=== PATIENT | male | born 1975 | race Caucasian/White ===

== ENCOUNTER 2023-08-20 11:17 | Outpatient (REF) | payer MEDICAID, SELFPAY ==
--- NOTE | ~2023-08-20 | XR_ITS ---
EXAMINATION: XR ANKLE, LEFT CLINICAL INFORMATION: Asymmetric left lateral ankle pain, patient states no trauma, pain and tenderness for ankle for about a week. COMPARISON: June 26, 2016. TECHNIQUE: AP, lateral, and mortise views of the left ankle. FINDINGS: Degenerative changes with hypertrophic spurring along the dorsal aspect of the talonavicular joint and imaged portion of midfoot as well as anterior distal tibia. Moderate dorsal calcaneal and small plantar calcaneal spurs. Diffuse soft tissue swelling and joint effusion. Ankle mortise is preserved. XR/XR ankle LT min 3V IMPRESSION: 1. Degenerative changes with hypertrophic spurring along the dorsal aspect of the talonavicular joint and imaged portion of midfoot as well as anterior distal tibia. 2. Moderate dorsal calcaneal and small plantar calcaneal spurs. 3. Diffuse soft tissue swelling and joint effusion.
[2023-08-20 12:32] LABS: Uric Acid 6.8 mg/dL (3.4-7.0)
[2023-08-21 08:58] LABS: Lyme Abs Screen <0.90 index
== END 2023-08-20 11:18 | disposition home or self-care (01) ==
LOC: HO.LAB 11:17
PROVIDERS: Visit Provider Emergency Medicine
DX: M25.572 Pain in left ankle and joints of left foot (principal)
CPT/HCPCS: 36415; 73610; 84550; 86617; 86618

== ENCOUNTER 2023-09-13 11:17 | Outpatient (AMB) | payer MEDICAID, SELFPAY ==
--- NOTE | 2023-09-13 11:35 | MHC.OFFVIS ---
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 Patient reports his pain has been on going for the past two months. He states is has been getting worse and only finds temporary relief when he is resting. He expresses the pain gets so severe he sometimes is unable to walk and will need to hold on to object to be able to get around with a limp When he is resting for too long and beings ambulating again his foot feels as if it fractured . He expresses sensitivity with palpitation and swelling. Tried and failed Motrin and Tylenol and ibuprofen for pain relief. 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 He currently states he has pain in his left ankle that gets so severe sometimes that he is unable to ambulate and he needs to hold on to object to be able to get around with a limp. His pain is also aggravated after resting for too long and ambulating again and feels his foot is ?fractured.? He experiences sensitivity with palpation and swelling. He has tried and failed with Motrin, Tylenol and ibuprofen. [facility] Social History (Updated 09/13/23 @ 12:01 by MACIEL Rocha) Alcohol intake: never Patient Tobacco Use Status: Current everyday Tobacco user Tobacco use type: Cigarette Current occupational status: employed Review of Systems Const All systems reviewed & are unremarkable except as noted in HPI and below Physical Exam Vital Signs: BMI result Body Mass Index 38.4 Const General: cooperative, healthy appearing, comfortable, no acute distress, well developed and alert Orientation/consciousness: patient oriented x3 HEENT Head: Yes normal to inspection, Yes normocephalic and Yes atraumatic Eyes General: appearance normal, both eyes and all related structures Resp Effort & Inspection: normal respiratory effort and able to speak in complete sentences Cardio Rate: regular rate Peripheral pulses: Peripheral pulses 2+ throughout GI Palpation (GI): Soft to palpation Skin Lesions: no lesions Rashes: no rashes Neuro General: patient oriented x3 Extrem Other: Left ankle: Normal to inspection with mild swelling over the medial and lateral malleolus with tenderness along the soft tissues.No discomfort along the posterior aspect of the ankle, no deformity along the Achilles tendon, negative [place]?s. No pain along the syndesmosis or anterior tibia. No laxity, NVI. Results Reviewed Results Reviewed: XR ankle LT min 3V IMPRESSION: 1. Degenerative changes with hypertrophic spurring along the dorsal aspect of the talonavicular joint and imaged portion of midfoot as well as anterior distal tibia. 2. Moderate dorsal calcaneal and small plantar calcaneal spurs. 3. Diffuse soft tissue swelling and joint effusion. Assessment & Plan Assessment & Plan (1) Left ankle sprain: Code(s): S93.402A - Sprain of unspecified ligament of left ankle, initial encounter Category: Medical Plan We discussed options which include PT, NSAIDs and injections. The patient will defer on the injection today and proceed with PT and NSAIDs. If symptoms persist, she will contact me for an injection, otherwise, PRN. Medications: New celecoxib (Celebrex) 200 mg PO BID 30 days 60 caps 3RF Discontinued albuterol sulfate 90 mcg/actuation Discontinued Reason: Patient no longer taking 2 puffs PO Q4-6H PRN 8.5 grams 0RF bronchospasm gabapentin Discontinued Reason: Patient no longer taking 600 mg PO TID 90 days 270 tabs 2RF Patient Instructions: Scribed for Huang Brunson PA-C, by Tomasz Mcgrath lpn or medical assistant, on 09/13/2023 at 11:15 AM EST.? I, Huang Brunson PA-C, have personally reviewed and agree with the information entered by the scribe. Coding Level of Care Code Est Pt Level 3 (86706) Diagnoses Left ankle sprain S93.402A
[2023-09-13 11:53] VITALS: BMI 38.4
== END 2023-09-13 12:36 | disposition home or self-care (01) ==
PROVIDERS: PCP Internal Medicine; Visit Provider Physician Assistant
DX: S93.402A Sprain of unspecified ligament of left ankle, initial encounter (principal)
CPT/HCPCS: 99213

== ENCOUNTER → 2023-09-13 11:17 | Outpatient (BNVA) | payer MEDICAID, SELFPAY | PROVIDERS: PCP Internal Medicine; Visit Provider Physician Assistant | DX: S93.402A Sprain of unspecified ligament of left ankle, initial encounter (principal) | CPT/HCPCS: 99212 ==

== ENCOUNTER 2023-10-29 11:19 | Outpatient (REF) | payer MEDICAID, SELFPAY ==
[2023-10-29 13:50] LABS: MANUAL DIFF FLAG NO
[2023-10-29 14:06] LABS: Basophils Absolute Auto 0.1 X10*3/uL (0.0-0.2); Basophils Percent Auto 1.3 % (0-2); Eosinophils Absolute Auto 0.2 X10*3/uL (0.0-0.4); Eosinophils Percent Auto 3.5 % (0-4); Hematocrit 44.9 % (42.0-52.0); Hemoglobin 15.2 g/dl (14.0-18.0); Imm Gran Abs Auto 0.02 X10*3/uL (0.00-0.03); Imm Gran Pct Auto 0.3 % (0.0-0.4); Lymphocytes Absolute Auto 1.3 X10*3/uL (1.2-4.9); Lymphocytes Percent Auto 21.1 % (20-40); Mean Corpuscular HGB Conc 33.9 g/dl (31.0-36.0); Mean Corpuscular Hemoglobin 30.8 pg (27.0-33.0); Mean Corpuscular Volume 91.1 fL (80.0-98.0); Mean Platelet Volume 10.7 fL (9.4-12.4); Monocytes Absolute Auto 0.4 X10*3/uL (0.1-1.2); Monocytes Percent Auto 6.4 % (2-11); Neutrophils Absolute Auto 4.2 x10*3/uL (2.0-8.3); Neutrophils Percent Auto 67.4 % (45-73); Platelet Count 210 X10*3/uL (160-400); Red Blood Count 4.93 X10*6/uL (4.60-5.80); Red Cell Distribution Width 12.8 % (11.0-16.0); White Blood Count 6.3 X10*3/uL (4.8-10.8)
[2023-10-29 14:20] LABS: Estimated Average Glucose 105 mg/dL; Hemoglobin A1c % 5.3 % (<6.0)
[2023-10-29 14:37] LABS: Alanine Aminotransferase 23 U/L (0-40); Albumin Level 4.3 g/dL (3.5-5.0); Alkaline Phosphatase 89 U/L (39-117); Anion Gap 12 (12-20); Aspartate Amino Transferase 21 U/L (5-37); Bilirubin Total 0.4 mg/dL (0.0-1.0); Blood Urea Nitrogen 14 mg/dL (9-16); Calcium 9.7 mg/dL (8.4-10.2); Carbon Dioxide 27 mmol/L (22-29); Chloride 104 mmol/L (96-108); Cholesterol 142 mg/dL (<200); Estimated Glomerular Filt Rate > 60; Glucose Random 92 mg/dL (60-115); HDL Cholesterol 30 mg/dL (>40); LDL Cholesterol Calculated 96 mg/dL (<100); Potassium 4.2 mmol/L (3.3-5.1); Sodium 139 mmol/L (135-145); Total Protein 7.6 g/dL (6.5-8.0); Triglycerides 81 mg/dL (<150)
[2023-10-29 14:40] LABS: TSH reflex Free T4 0.68 uIU/mL (0.32-4.0); Vitamin D 25-OH Total 32.6 ng/mL (>30)
[2023-10-29 15:01] LABS: Reflex LDLD? No
== END 2023-10-29 11:20 | disposition home or self-care (01) ==
LOC: HO.HHCL 11:19
PROVIDERS: Visit Provider Internal Medicine
DX: Z00.00 Encounter for general adult medical examination without abnormal findings (principal); I10 Essential (primary) hypertension; Z79.899 Other long term (current) drug therapy; R00.2 Palpitations; E66.09 Other obesity due to excess calories
CPT/HCPCS: 36415; 80053; 80061; 82306; 83036; 84443; 85025